=== PATIENT | female | born 1945 | race Caucasian/White ===

== ENCOUNTER 2016-12-11 11:07 | Day surgery (SDC) | payer MEDICARE, OTHER ==
[~2016-12-11] VITALS: Ht 167.6 cm; Wt 68.0 kg
[~2016-12-11 11:07] MED LIST: 0.9% Sodium Chloride 1,000 ML IV SCH; ATEN50TA PO; CHOL500050 PO; ERGO2000 PO; LEVO50TA83 PO; PRAV40TA PO; RANI150C4 PO; ROPI1TAB3 PO; Sodium Chloride LOK Flush 10 mL Syringe IV PRN; T2T PO; fentaNYL-PF 50 mCg/mL 2 mL Inj IVPUSH PRN
[2016-12-11] MEDS ORDERED: fentaNYL-PF 50 mCg/mL 2 mL Inj IVPUSH ONE (11:08)
[2016-12-11 11:45] VITALS: BP 131/63; PULSE 56; RESP 14; O2SAT 99
[2016-12-11] MEDS ORDERED: OMEP20TA86 PO (11:47)
[2016-12-11] MEDS ORDERED: GABA-502 PO (11:49)
[2016-12-11] MEDS ORDERED: 0.9% Sodium Chloride 1,000 ML IV ONE (13:20)
[2016-12-11 13:28] VITALS: BP 128/60; PULSE 55; RESP 16; O2SAT 98
[2016-12-11 13:38] VITALS: BP 121/60; PULSE 56; RESP 16; O2SAT 98
[2016-12-11 13:49] VITALS: BP 131/66; PULSE 53; RESP 16; O2SAT 100
[2016-12-11 13:59] VITALS: BP 141/77; PULSE 54; RESP 16; O2SAT 98
--- NOTE | 2016-12-11 23:58 | ENDO ---
[address] [address] ENDOSCOPY PROCEDURE PATIENT: NORBERTO LOCKHART : 1945 MR#: [id number] ADMIT: 12/11/2016 JOB ID: [id number] DATE: 12/11/2016 PROCEDURE PERFORMED: Esophagogastroduodenoscopy. INDICATIONS: Gastroesophageal reflux in a patient with a history of Gustavo fundoplication. The patient's ASA classification is two. Mallampati score is two. MEDICATIONS: 1. Versed 6 mg. 2. Fentanyl 100 mcg. INSTRUMENT USED: [id number] PROCEDURE DETAILS: After informed consent was obtained, the patient was brought to the GI suite, where she was placed on oxygen via nasal cannula and monitored with continuous pulse oximeter, telemetry, and blood pressure monitoring. A time-out was performed. Then, she was placed in a left lateral decubitus position and medications were administered for sedation. A bite block was placed. The standard EGD scope was inserted into bite block and advanced under direct visualization to the second portion of duodenum without difficulty. FINDINGS: 1. Normal-appearing duodenal bulb, first and second portion. Multiple random biopsies were obtained. The patient also had complaints of abdominal bloating. 2. Normal-appearing pylorus, antrum and gastric body. Retroflexed views in the gastric body revealed a normal-appearing cardia and fundus. 3. Multiple random biopsies were obtained throughout the antrum and body of the stomach. 4. The retroflexed views also revealed changes consistent with patient's history of Gustavo fundoplication. 5. The GE junction was regular at 38 cm. 6. Normal-appearing esophagus. IMPRESSION: Changes consistent with patient's history of Gustavo fundoplication. Otherwise normal examination to second portion of duodenum. RECOMMENDATIONS: 1. Await biopsy results. 2. Proceed to colonoscopy. PROCEDURE PERFORMED: Colonoscopy. INDICATION: Abdominal bloating. Please see above for ASA classification, Mallampati score, and medications. INSTRUMENT USED: [id number]. PREPARATION QUALITY: Fair. PROCEDURE DETAILS: After EGD was completed, the patient was turned and then a digital rectal exam was performed which was unremarkable. The colonoscope was then inserted into the rectum and advanced under direct visualization to the cecum, which identified by the presence of the ileocecal valve and appendiceal orifice. Once the cecum was reached, the colonoscope was withdrawn back into the rectum. Mucosa and lumen were examined. In the rectum, retroflexion was performed. Following retroflexion, remaining air in the rectum was suctioned, and procedure was completed. FINDINGS: Normal exam from rectum to cecum. IMPRESSION: Normal colonoscopy. RECOMMENDATIONS: 1. MiraLAX 17 in 8 ounce beverage of choice daily. 2. Follow up in GI clinic in two to four weeks. COMPLICATIONS: None estimated. BLOOD LOSS: Less than 5 mL.
--- NOTE | 2016-12-14 14:30 | PATH ---
SURGICAL PATHOLOGY Attending Physician:Gigi Collado CASE STATUS: Signed Out PATIENT NAME: NORBERTO LOCKHART PID: [id number] : 1945 DATE COLLECTED:12/11/2016 21:11 SPECIMEN: 1: Duodenum, Biopsy 2: Gastric, Biopsy CLINICAL HISTORY: 1). DUODENAL BIOPSY 2). GASTRIC BIOPSY FINAL DIAGNOSIS: 1.DUODENAL BIOPSY: CHANGES OF CHRONIC DUODENITIS WITH AREAS OF FOVEOLAR METAPLASIA. Negative for dysplasia and malignancy. Negative for evidence of celiac disease. 2.GASTRIC BIOPSIES: MILD CHRONIC GASTRITIS INVOLVING ANTRAL AND FUNDIC MUCOSA. Negative for evidence of Helicobacter on H&E stain. Negative for intestinal metaplasia. Negative for dysplasia and malignancy. ICD10 K29.70 GROSS DESCRIPTION: The specimen is received in two formalin filled containers labeled with the patient's name. 1). The specimen is sublabeled "duodenal" and consists of 3 portions of tissue which aggregate to 0.3 x 0.3 x 0.2 CM. The specimen is entirely submitted in cassette 1A. 2). The specimen is sublabeled "gastric" and consists of 2 portions of tissue which aggregate to 0.4 x 0.3 x 0.2 CM. The specimen is entirely submitted in cassette 2A. 12/11/2016 [facility] MICRO DESCRIPTION: See diagnosis. ICD-9 CODES: CPT CODES: 1: 74169 2: 64451 Electronically Signed Out Juan Vivas MD [facility] [address], [place] [address] Technical component performed at [facility], [address] [place] [address] Ave[address], [address]
== END 2016-12-11 23:59 | disposition home or self-care (01) ==
LOC: END 11:07
PROVIDERS: ATTEND Internal Medicine Gastroenterology
DX: K29.50 Unspecified chronic gastritis without bleeding (principal); K29.80 Duodenitis without bleeding; K21.9 Gastro-esophageal reflux disease without esophagitis; R14.0 Abdominal distension (gaseous); Z79.1 Long term (current) use of non-steroidal anti-inflammatories (NSAID)
CPT/HCPCS: 43239; 45378; 88305; 99153; G0500; J2250; J3010; J7030